=== PATIENT | male | born 1975 | race African-American/Black ===

== ENCOUNTER 2021-07-25 08:49 | Emergency (ER) | payer SELFPAY ==
[~2021-07-25] VITALS: Ht 185.4 cm; Wt 104.3 kg
--- NOTE | 2021-07-25 09:15 | NUR ---
To ER bed 10, c/o R shoulder pain s/p falling off the stairs 2 nights ago. AAox3, breathing even and non labored, connected to monitor
[2021-07-25] MEDS ORDERED: NAPR-1009 PO (11:49)
--- NOTE | 2021-07-25 11:54 | NUR ---
Patient discharged to home in stable condition. Written and verbal after care instructions given. Patient verbalizes understanding of instruction.
[2021-07-25 11:55] VITALS: BP 151/99
== END 2021-07-25 11:55 | disposition home or self-care (01) ==
LOC: ER 09:02
DX: S46.091A Other injury of muscle(s) and tendon(s) of the rotator cuff of right shoulder, initial encounter (principal); M75.31 Calcific tendinitis of right shoulder; I10 Essential (primary) hypertension; W10.8XXA Fall (on) (from) other stairs and steps, initial encounter; Y93.89 Activity, other specified; Y92.89 Other specified places as the place of occurrence of the external cause; Y99.8 Other external cause status
CPT/HCPCS: 73030-TC